=== PATIENT | female | born 1980 | race Caucasian/White ===

== ENCOUNTER 2016-12-22 13:09 | Emergency (ER) | payer OTHER | END 2016-12-22 13:50 | disposition home or self-care (01) | LOC: D.ER 13:09 | DX: S02.5XXA Fracture of tooth (traumatic), initial encounter for closed fracture (principal); X58.XXXA Exposure to other specified factors, initial encounter; Y93.89 Activity, other specified; Y92.019 Unspecified place in single-family (private) house as the place of occurrence of the external cause ==

== ENCOUNTER 2017-01-04 10:32 | Emergency (ER) | payer OTHER | END 2017-01-04 11:55 | disposition home or self-care (01) | LOC: D.ER 10:32 | DX: K02.9 Dental caries, unspecified (principal); K08.89 Other specified disorders of teeth and supporting structures ==